=== PATIENT | male | born 1945 | race Caucasian/White ===

== ENCOUNTER 2019-02-06 21:48 | Outpatient (REF) | payer MEDICARE, SELFPAY ==
[2019-02-06 21:45] LABS: Abs Immature Grans 0.08 k/cumm (0.0-0.09); Absolute Basophil Count 0.07 k/cumm (0.0-0.2); Absolute Eosinophil Count 0.12 k/cumm (0.0-0.7); Absolute Lymphocyte Count 2.07 k/cumm (1.2-3.4); Absolute Monocyte Count 1.08 k/cumm (0.11-0.7); Absolute Neutrophil Count 6.73 k/cumm (1.2-6.7); Basophils % 0.7; Eosinophils % 1.2; HCT 30.9 % (40.0-50.0); HGB 9.8 g/dL (13.5-17.5); Immature Grans % 0.8; Lymphocytes % 20.4; Mean Corp. HGB Concentration 31.7 g/dL (32.0-36.0); Mean Corpuscular Hemoglobin 32.6 pg (27.0-33.0); Mean Corpuscular Volume 102.7 fL (80-95); Mean Platelet Volume 12.6 fL (8.0-11.0); Monocytes % 10.6; Neutrophils % 66.3; Platelet Count 332 x1000/uL (130-400); RBC 3.01 m/cumm (4.50-6.00); RBC Distribution Width 15.6 % (11.8-14.1); White Blood Cell Count 10.15 k/cumm (4.4-10.8)
[2019-02-06 22:09] LABS: TSH (W/Ref FT4) 1.71 uIU/mL (0.358-3.74); Vitamin B12 623 pg/mL (193-986)
[2019-02-06 22:21] LABS: Diff Comment Diff Reviewed; Macrocytosis 3+
[2019-02-08 11:04] LABS: Syphilis Serology (RPR) Negative (Negative)
[2019-02-09 09:03] LABS: Thiamine (Vitamin B1), WB 154 nmol/L (70-180)
== END 2019-02-06 22:08 ==
LOC: NCHCN 21:48
PROVIDERS: PCP Family Medicine; Visit Provider Family Medicine
DX: L03.115 Cellulitis of right lower limb (principal); I10 Essential (primary) hypertension
CPT/HCPCS: 82607; 84425; 84443; 85025; 86592